=== PATIENT | male | born 1995 | race African-American/Black ===

== ENCOUNTER 2018-09-12 11:58 | Emergency (ER) | payer SELFPAY ==
[2018-09-12] MEDS ORDERED: Ondansetron ODT 4 MG TAB ONE (12:32)
[2018-09-12] MEDS ORDERED: Ibuprofen 800 MG TAB ONE (12:32)
== END 2018-09-12 12:42 | disposition home or self-care (01) ==
LOC: BURERS 11:58
DX: J11.1 Influenza due to unidentified influenza virus with other respiratory manifestations (principal)
CPT/HCPCS: 87804; 99283; Q0162

== ENCOUNTER 2019-09-14 09:50 | Emergency (ER) | payer SELFPAY | END 2019-09-14 10:32 | disposition home or self-care (01) | LOC: BURERS 09:50 | DX: M54.5 Low back pain (principal); M79.604 Pain in right leg; Z71.6 Tobacco abuse counseling; F17.210 Nicotine dependence, cigarettes, uncomplicated; X50.9XXA Other and unspecified overexertion or strenuous movements or postures, initial encounter; Y93.83 Activity, rough housing and horseplay | CPT/HCPCS: 99406 ==

== ENCOUNTER 2021-03-02 02:30 | Emergency (ER) | payer OTHER, SELFPAY | END 2021-03-02 02:45 | LOC: BURERS 02:30 | DX: S00.83XA Contusion of other part of head, initial encounter (principal); F10.129 Alcohol abuse with intoxication, unspecified; F17.210 Nicotine dependence, cigarettes, uncomplicated; X58.XXXA Exposure to other specified factors, initial encounter | CPT/HCPCS: 99283 ==